=== PATIENT | male | born 1955 | race Two or more races ===

== ENCOUNTER 2021-03-19 08:02 | Emergency (ER) | payer SELFPAY ==
[~2021-03-19] VITALS: Ht 177.8 cm; Wt 95.3 kg
[2021-03-19] MEDS ORDERED: methylPREDNISolone SOD SUCC 125 MG/2 ML VL IV ONE (08:15)
[2021-03-19] MEDS ORDERED: ZINC SULFATE 220mg CAP or TAB PO ONE (08:30)
[2021-03-19] MEDS ORDERED: CHOLECALCIFEROL (VITD3) 2,000 UNIT CAP/TAB PO ONE (08:30)
[2021-03-19] MEDS ORDERED: ASCORBIC ACID 500 MG TAB PO ONE (08:30)
[2021-03-19 09:08] LABS: Basophils # (auto) 0.1 10 ^3/uL (0-0.2); Basophils % (auto) 1.1 % (0.0-2.0); Eosinophils # (auto) 0.1 10 ^3/uL (0-0.8); Eosinophils % (auto) 1.7 % (0.0-7.0); Hemoglobin 14.2 g/dL (13.5-17.5); Lymphocytes # (auto) 0.8 10 ^3/uL (0.4-5.4); Lymphocytes % (auto) 11.3 % (10.0-50.0); Mean Corpuscular Hgb Conc. 32.2 g/dL (32.0-36.0); Mean Corpuscular Volume 80.6 fL (80.0-100.0); Monocytes # (auto) 0.5 10 ^3/uL (0-1.3); Monocytes % (auto) 7.7 % (0.0-12.0); Neutrophils # (auto) 5.5 10 ^3/uL (1.6-8.6); Neutrophils % (auto) 78.2 % (37.0-80.0); Nucleated Red Blood Cells % 0.1 %; Red Blood Cells 5.46 10^6/uL (4.5-5.90)
[2021-03-19 09:38] LABS: Albumin 3.5 g/dL (3.4-5.0); Calcium 8.4 mg/dL (8.5-10.1); Magnesium 2.8 mg/dL (1.6-2.6); Potassium 4.2 mmol/L (3.5-5.1)
[2021-03-19 09:41] LABS: Lactic Acid w/Reflex 2.2 mmol/L (0.4-2.0)
[2021-03-19 09:47] LABS: BUN/Creatinine Ratio 18.8; Bilirubin, Total 0.7 mg/dL (0.2-1.0); CRP High Sensitivity 1.75 mg/dL (< 0.3); Total Protein 7.4 g/dL (6.4-8.2)
[2021-03-19 10:04] VITALS: BP 169/116
[2021-03-19] MEDS ORDERED: AZITHROMYCIN 500MG/ 250ML 250 ML IV ONE (10:30)
[2021-03-19] MEDS ORDERED: FUROSEMIDE 40 MG/4 ML VIAL IV ONE (10:30)
== END 2021-03-19 11:10 | disposition left against medical advice (07) ==
LOC: ER 08:02
DX: R06.02 Shortness of breath (principal); I50.9 Heart failure, unspecified; Z20.822 Contact with and (suspected) exposure to COVID-19
CPT/HCPCS: 36415; 71045; 80053; 82728; 83605; 83735; 83880; 84484; 85025; 85379; 86141; 87040; 87426; 93005; 96374; 99285; J0456; J1940; J2930

== ENCOUNTER 2021-04-06 02:16 | Inpatient (IN) | payer MEDICAID, OTHER ==
[~2021-04-06] VITALS: Ht 177.8 cm; Wt 90.7 kg
[2021-04-06] MEDS ORDERED: FUROSEMIDE 40 MG/4 ML VIAL IV ONE (02:30)
[2021-04-06] MEDS ORDERED: cloNIDine HCL 0.1 MG TAB PO ONE (02:30)
[2021-04-06 03:03] LABS: Basophils # (auto) 0.1 10 ^3/uL (0-0.2); Basophils % (auto) 0.9 % (0.0-2.0); Eosinophils # (auto) 0.2 10 ^3/uL (0-0.8); Eosinophils % (auto) 1.8 % (0.0-7.0); Hematocrit 44.9 % (41.0-53.0); Hemoglobin 14.3 g/dL (13.5-17.5); Lymphocytes # (auto) 0.8 10 ^3/uL (0.4-5.4); Lymphocytes % (auto) 9.7 % (10.0-50.0); Mean Corpuscular Hgb Conc. 31.9 g/dL (32.0-36.0); Mean Corpuscular Volume 81.8 fL (80.0-100.0); Monocytes # (auto) 0.5 10 ^3/uL (0-1.3); Monocytes % (auto) 5.8 % (0.0-12.0); Neutrophils # (auto) 6.9 10 ^3/uL (1.6-8.6); Neutrophils % (auto) 81.8 % (37.0-80.0); Nucleated Red Blood Cells % 0.1 %; Red Blood Cells 5.49 10^6/uL (4.5-5.90); Red Cell Distribution Width 16.5 % (11.8-14.3); White Blood Cell 8.4 10^3/uL (4.4-10.8)
[2021-04-06 03:20] LABS: Albumin 3.3 g/dL (3.4-5.0); Potassium 4.1 mmol/L (3.5-5.1)
[2021-04-06 03:23] LABS: Total Protein 6.9 g/dL (6.4-8.2)
[2021-04-06 06:51] LABS: Urine WBC None Seen /hpf (0 - 3)
[2021-04-06 07:00] LABS: Urine Bacteria NONE SEEN /hpf (None Seen); Urine Blood Negative /uL (Negative); Urine Hyaline Cast FEW /lpf (0 - 2); Urine Mucus FEW (None Seen); Urine Specific Gravity 1.005 (1.001-1.035)
[2021-04-06] MEDS ORDERED: ENOXAPARIN SOD 100 MG/1 ML SYRINGE SC ONE (07:15)
[2021-04-06] MEDS ORDERED: ACETAMINOPHEN 325 MG TAB PO ONE (10:15)
[2021-04-06] MEDS ORDERED: MORPHINE SULFATE INJECTION 2 MG/ML SYRG IV PRN ×2 (11:00)
[2021-04-06] MEDS ORDERED: HYDROcodone-ACET 5/325MG TAB PO PRN (11:00)
[2021-04-06] MEDS ORDERED: ONDANSETRON HCL 4 MG/2 ML VIAL IV PRN (11:00)
[2021-04-06] MEDS ORDERED: NITROGLYCERIN 0.4 MG SL TAB SL PRN (11:00)
[2021-04-06] MEDS ORDERED: ACETAMINOPHEN 500 MG TAB PO PRN (11:00)
[2021-04-06] MEDS ORDERED: hydrALAZINE HCL 20 MG/ML VL IV PRN (11:00)
[2021-04-06] MEDS ORDERED: FUROSEMIDE 20 MG/2 ML VIAL IV ONE (11:00)
[2021-04-06] MEDS: LISINOPRIL 5 MG TAB PO SCH (11:09)
[2021-04-06 11:39] LABS: Cholesterol 134 mg/dL (< 200)
[2021-04-06 11:41] LABS: HDL Cholesterol 19 mg/dL (40-59); LDL Cholesterol 105 mg/dL (< 100); Triglycerides 84 mg/dL (< 150)
[2021-04-06 11:56] LABS: Alcohol, Urine < 3.0 mg/dL (0-10); Amphetamine Screen, Urine NEGATIVE (NEGATIVE); Barbiturate Scree,Urine NEGATIVE (NEGATIVE); Benzodiazephine Screen, Urine NEGATIVE (NEGATIVE); Cannabinoid Screen, Urine NEGATIVE (NEGATIVE); Cocaine Screen, Urine NEGATIVE (NEGATIVE); Opiate Scree,Urine NEGATIVE (NEGATIVE); Phencyclidine Screen, Urine NEGATIVE (NEGATIVE)
[2021-04-06 23:30] VITALS: BP 130/90
[2021-04-07 05:00] VITALS: BP 124/94
[2021-04-07 07:24] LABS: Basophils # (auto) 0.1 10 ^3/uL (0-0.2); Eosinophils # (auto) 0.2 10 ^3/uL (0-0.8); Monocytes # (auto) 0.6 10 ^3/uL (0-1.3); Nucleated Red Blood Cells % 0.1 %; Red Blood Cells 5.15 10^6/uL (4.5-5.90)
[2021-04-07 07:26] LABS: Basophils % (auto) 0.9 % (0.0-2.0); Eosinophils % (auto) 3.4 % (0.0-7.0); Hematocrit 41.5 % (41.0-53.0); Hemoglobin 13.4 g/dL (13.5-17.5); Mean Corpuscular Hgb Conc. 32.3 g/dL (32.0-36.0); Mean Corpuscular Volume 80.5 fL (80.0-100.0); Monocytes % (auto) 10.4 % (0.0-12.0); Neutrophils # (auto) 4.1 10 ^3/uL (1.6-8.6); Neutrophils % (auto) 68.3 % (37.0-80.0); Red Cell Distribution Width 16.2 % (11.8-14.3)
[2021-04-07 07:45] LABS: Potassium 4.2 mmol/L (3.5-5.1)
[2021-04-07 07:53] LABS: BUN/Creatinine Ratio 16.5; Calcium 8.6 mg/dL (8.5-10.1)
[2021-04-07 07:56] LABS: INR 1.22 (0.9-1.15); Partial Thromboplastin Time 28.8 sec (23.6-33.0)
[2021-04-07] MEDS ORDERED: METOPROLOL SUCCINATE XL 50 MG TAB PO SCH (10:00)
[2021-04-07] MEDS: ASPirin-EC 81 mg tab PO SCH (10:00)
[2021-04-07] MEDS ORDERED: FUROSEMIDE 20 MG TAB PO SCH (10:00)
[2021-04-07] MEDS: LISINOPRIL 5 MG TAB PO SCH (10:00)
[2021-04-07] MEDS ORDERED: LISINOPRIL 5 MG TAB PO ONE (11:15)
[2021-04-07] MEDS ORDERED: POTASSIUM CHL 20 Meq TABLET PO ONE (11:15)
[2021-04-07] MEDS ORDERED: FUROSEMIDE 40 MG/4 ML VIAL IV ONE (11:15)
[2021-04-07] MEDS: CARVEDILOL 12.5 MG TAB PO SCH (21:42)
[2021-04-08 06:47] LABS: Potassium 4.4 mmol/L (3.5-5.1)
[2021-04-08 06:56] LABS: BUN/Creatinine Ratio 19.1; Calcium 8.8 mg/dL (8.5-10.1)
[2021-04-08] MEDS ORDERED: ADENOSINE 76 MG in GIVE UN-DILUTED 0 ML IV STA (07:09)
[2021-04-08 08:12] VITALS: BP 113/99
[2021-04-08 09:00] VITALS: BP 120/72
[2021-04-08] MEDS: ASPirin-EC 81 mg tab PO SCH (09:11)
[2021-04-08] MEDS: CARVEDILOL 12.5 MG TAB PO SCH (09:13)
[2021-04-08] MEDS ORDERED: POTASSIUM CHL 20 Meq TABLET PO SCH (10:00)
[2021-04-08] MEDS ORDERED: LISINOPRIL 5 MG TAB PO SCH (10:00)
[2021-04-08] MEDS ORDERED: FUROSEMIDE 40 MG/4 ML VIAL IV SCH (10:00)
[2021-04-08 12:49] VITALS: BP 106/78
== END 2021-04-08 14:15 | disposition left against medical advice (07) | DRG 194 ==
LOC: ER 02:16 → TELE 10:46 → TELE-CENTR 23:23
PROVIDERS: ADMIT Nurse Practitioner Acute Care; ATTEND Internal Medicine
DX: I11.0 Hypertensive heart disease with heart failure (principal); J96.01 Acute respiratory failure with hypoxia; I21.A1 Myocardial infarction type 2; E44.1 Mild protein-calorie malnutrition; R77.8 Other specified abnormalities of plasma proteins; I50.21 Acute systolic (congestive) heart failure; F14.10 Cocaine abuse, uncomplicated; I27.20 Pulmonary hypertension, unspecified; E78.5 Hyperlipidemia, unspecified; Z20.822 Contact with and (suspected) exposure to COVID-19; Z53.29 Procedure and treatment not carried out because of patient's decision for other reasons; R73.9 Hyperglycemia, unspecified; Z68.26 Body mass index [BMI] 26.0-26.9, adult; Z82.49 Family history of ischemic heart disease and other diseases of the circulatory system; Z83.3 Family history of diabetes mellitus
CPT/HCPCS: 36415; 71045; 78452; 80048; 80053; 80061; 80307; 81001; 83036; 83880; 84484; 85025; 85610; 85730; 87426; 93005; 93017; 93306; 96372; 96374; 96376; 99291; G0378; J0153

== ENCOUNTER 2021-04-14 13:31 | Emergency (ER) | payer SELFPAY ==
[~2021-04-14] VITALS: Ht 177.8 cm; Wt 90.7 kg
[2021-04-14 13:35] VITALS: BP 170/128
[2021-04-14 15:00] LABS: Basophils # (auto) 0.1 10 ^3/uL (0-0.2); Eosinophils # (auto) 0.2 10 ^3/uL (0-0.8); Hemoglobin 13.6 g/dL (13.5-17.5); Mean Corpuscular Hemoglobin 25.5 pg (28.0-32.0); Monocytes # (auto) 0.7 10 ^3/uL (0-1.3); Nucleated Red Blood Cells % 0.1 %
[2021-04-14 15:01] LABS: Basophils % (auto) 1.8 % (0.0-2.0); Eosinophils % (auto) 2.3 % (0.0-7.0); Hematocrit 42.4 % (41.0-53.0); Lymphocytes # (auto) 0.9 10 ^3/uL (0.4-5.4); Lymphocytes % (auto) 12.9 % (10.0-50.0); Mean Corpuscular Hgb Conc. 32.1 g/dL (32.0-36.0); Mean Corpuscular Volume 79.4 fL (80.0-100.0); Monocytes % (auto) 9.8 % (0.0-12.0); Neutrophils % (auto) 73.2 % (37.0-80.0); Red Blood Cells 5.34 10^6/uL (4.5-5.90); Red Cell Distribution Width 16.1 % (11.8-14.3); White Blood Cell 6.9 10^3/uL (4.4-10.8)
[2021-04-14 15:08] LABS: Albumin 3.5 g/dL (3.4-5.0); Calcium 8.7 mg/dL (8.5-10.1); Potassium 4.6 mmol/L (3.5-5.1)
[2021-04-14 15:14] LABS: BUN/Creatinine Ratio 22.9; Bilirubin, Total 1.1 mg/dL (0.2-1.0); Total Protein 6.8 g/dL (6.4-8.2)
[2021-04-14] MEDS ORDERED: ASPirin 81 mg TAB PO ONE (17:30)
[2021-04-14] MEDS ORDERED: FUROSEMIDE 20 MG/2 ML VIAL IV ONE (17:30)
== END 2021-04-14 23:50 | disposition left against medical advice (07) ==
LOC: ER 13:31
DX: I24.9 Acute ischemic heart disease, unspecified (principal); I50.9 Heart failure, unspecified; Z90.89 Acquired absence of other organs
CPT/HCPCS: 36415; 71045; 80053; 83880; 84484; 85025

== ENCOUNTER 2021-04-15 03:18 | Inpatient (IN) | payer BC, OTHER ==
[~2021-04-15] VITALS: Ht 177.8 cm; Wt 89.0 kg
[2021-04-15] MEDS ORDERED: ASPirin 81 mg TAB PO ONE (08:15)
[2021-04-15 10:33] LABS: Basophils # (auto) 0.1 10 ^3/uL (0-0.2); Basophils % (auto) 0.9 % (0.0-2.0); Eosinophils # (auto) 0.1 10 ^3/uL (0-0.8); Eosinophils % (auto) 1.2 % (0.0-7.0); Hematocrit 43.3 % (41.0-53.0); Hemoglobin 14.1 g/dL (13.5-17.5); Lymphocytes % (auto) 11.2 % (10.0-50.0); Mean Corpuscular Hemoglobin 25.9 pg (28.0-32.0); Mean Corpuscular Hgb Conc. 32.5 g/dL (32.0-36.0); Mean Corpuscular Volume 79.6 fL (80.0-100.0); Monocytes # (auto) 0.6 10 ^3/uL (0-1.3); Monocytes % (auto) 7.5 % (0.0-12.0); Neutrophils # (auto) 6.7 10 ^3/uL (1.6-8.6); Neutrophils % (auto) 79.2 % (37.0-80.0); Nucleated Red Blood Cells % 0.2 %; Red Blood Cells 5.44 10^6/uL (4.5-5.90); White Blood Cell 8.5 10^3/uL (4.4-10.8)
[2021-04-15 10:47] LABS: Albumin 3.6 g/dL (3.4-5.0); Calcium 9.1 mg/dL (8.5-10.1)
[2021-04-15 10:51] LABS: Bilirubin, Total 1.4 mg/dL (0.2-1.0); Total Protein 6.9 g/dL (6.4-8.2)
[2021-04-15] MEDS ORDERED: NITROGLYCERIN 0.4 MG SL TAB SL PRN (11:45)
[2021-04-15] MEDS ORDERED: MORPHINE SULFATE INJECTION 2 MG/ML SYRG IV PRN (11:45)
[2021-04-15] MEDS ORDERED: ENOXAPARIN SOD 100 MG/1 ML SYRINGE SC ONE (11:45)
[2021-04-15] MEDS ORDERED: FUROSEMIDE 20 MG/2 ML VIAL IV ONE (12:00)
[2021-04-15] MEDS: SODIUM CHLOR 0.9% PF (SALINE LOCK) 10ML VIAL/SYR IV SCH ×2 (14:18→21:43)
[2021-04-15 20:07] LABS: Alcohol, Urine < 3.0 mg/dL (0-10); Amphetamine Screen, Urine NEGATIVE (NEGATIVE); Barbiturate Scree,Urine NEGATIVE (NEGATIVE); Benzodiazephine Screen, Urine NEGATIVE (NEGATIVE); Cannabinoid Screen, Urine NEGATIVE (NEGATIVE); Cocaine Screen, Urine NEGATIVE (NEGATIVE); Opiate Scree,Urine NEGATIVE (NEGATIVE); Phencyclidine Screen, Urine NEGATIVE (NEGATIVE)
[2021-04-15] MEDS: CARVEDILOL 3.125 MG TAB PO SCH (21:43)
[2021-04-15] MEDS: SACUBITRIL-VALSARTAN 24mg/26mg TAB PO SCH (21:44)
[2021-04-15] MEDS: ATORVASTATIN 20 MG TAB PO SCH (21:44)
[2021-04-15] MEDS: ENOXAPARIN SOD 100 MG/1 ML SYRINGE SC SCH (21:44)
[2021-04-15 22:16] VITALS: BP 155/102
[2021-04-16 01:23] LABS: Urine Bacteria NONE SEEN /hpf (None Seen); Urine Blood Negative /uL (Negative); Urine Specific Gravity 1.014 (1.001-1.035); Urine WBC None Seen /hpf (0 - 3)
[2021-04-16] MEDS: SODIUM CHLOR 0.9% PF (SALINE LOCK) 10ML VIAL/SYR IV SCH ×3 (04:51→21:48)
[2021-04-16] MEDS: FUROSEMIDE 20 MG/2 ML VIAL IV SCH ×2 (04:52→18:09)
[2021-04-16 09:00] VITALS: BP 141/85
[2021-04-16 09:05] LABS: Basophils # (auto) 0.1 10 ^3/uL (0-0.2); Eosinophils # (auto) 0.5 10 ^3/uL (0-0.8); Hematocrit 42.9 % (41.0-53.0); Monocytes # (auto) 0.9 10 ^3/uL (0-1.3); Monocytes % (auto) 8.7 % (0.0-12.0); Neutrophils # (auto) 8.2 10 ^3/uL (1.6-8.6)
[2021-04-16 09:08] LABS: Basophils % (auto) 0.9 % (0.0-2.0); Eosinophils % (auto) 4.2 % (0.0-7.0); Hemoglobin 13.9 g/dL (13.5-17.5); Lymphocytes % (auto) 9.7 % (10.0-50.0); Mean Corpuscular Hemoglobin 25.9 pg (28.0-32.0); Mean Corpuscular Hgb Conc. 32.5 g/dL (32.0-36.0); Mean Corpuscular Volume 79.9 fL (80.0-100.0); Neutrophils % (auto) 76.5 % (37.0-80.0); Nucleated Red Blood Cells % 0.2 %; Red Blood Cells 5.37 10^6/uL (4.5-5.90); White Blood Cell 10.7 10^3/uL (4.4-10.8)
[2021-04-16 09:29] LABS: Potassium 3.9 mmol/L (3.5-5.1)
[2021-04-16 09:37] LABS: Albumin 3.1 g/dL (3.4-5.0); BUN/Creatinine Ratio 18.6; Calcium 8.7 mg/dL (8.5-10.1); Total Protein 6.4 g/dL (6.4-8.2)
[2021-04-16 09:51] LABS: Bilirubin, Total 1.3 mg/dL (0.2-1.0)
[2021-04-16] MEDS: SACUBITRIL-VALSARTAN 24mg/26mg TAB PO SCH ×2 (10:45→21:48)
[2021-04-16] MEDS: CARVEDILOL 3.125 MG TAB PO SCH ×2 (10:45→21:49)
[2021-04-16] MEDS: DAPAGLIFLOZIN 5 MG TAB PO SCH (10:46)
[2021-04-16] MEDS: ENOXAPARIN SOD 100 MG/1 ML SYRINGE SC SCH ×2 (10:47→21:50)
[2021-04-16] MEDS: ASPirin-EC 81 mg tab PO SCH (10:47)
[2021-04-16 12:48] VITALS: BP 127/78
[2021-04-16 17:00] VITALS: BP 133/70
[2021-04-16 21:30] VITALS: BP 112/76
[2021-04-16] MEDS: ATORVASTATIN 20 MG TAB PO SCH (21:48)
[2021-04-17] MEDS ORDERED: HYDROcodone-ACET 5/325MG TAB PO PRN (01:30)
[2021-04-17] MEDS: HYDROcodone-ACET 5/325MG TAB PO PRN (01:49)
[2021-04-17] MEDS ORDERED: HYDROcodone-ACET 5/325MG TAB ONE (01:49)
[2021-04-17 05:00] VITALS: BP 129/85
[2021-04-17] MEDS: SODIUM CHLOR 0.9% PF (SALINE LOCK) 10ML VIAL/SYR IV SCH ×3 (06:12→21:36)
[2021-04-17] MEDS: FUROSEMIDE 20 MG/2 ML VIAL IV SCH ×2 (06:14→17:56)
[2021-04-17 08:00] VITALS: BP 124/71
[2021-04-17 09:00] VITALS: BP 124/71
[2021-04-17] MEDS: ASPirin-EC 81 mg tab PO SCH (09:18)
[2021-04-17] MEDS: CARVEDILOL 3.125 MG TAB PO SCH ×2 (09:19→21:42)
[2021-04-17] MEDS: SACUBITRIL-VALSARTAN 24mg/26mg TAB PO SCH ×2 (09:19→21:36)
[2021-04-17] MEDS: DAPAGLIFLOZIN 5 MG TAB PO SCH (09:19)
[2021-04-17] MEDS ORDERED: ENOXAPARIN SOD 40 MG/0.4 ML SYRINGE SC SCH (10:00)
[2021-04-17] MEDS ORDERED: AMIODARONE HCL 200 MG TAB PO ONE (12:30)
[2021-04-17 13:00] VITALS: BP 105/78
[2021-04-17 17:00] VITALS: BP 125/80
[2021-04-17] MEDS: APIXABAN 5 MG TAB PO SCH (21:35)
[2021-04-17] MEDS: AMIODARONE HCL 200 MG TAB PO SCH (21:35)
[2021-04-17] MEDS: ATORVASTATIN 20 MG TAB PO SCH (21:35)
[2021-04-17 22:00] VITALS: BP 120/80
[2021-04-18 05:00] VITALS: BP 109/83
[2021-04-18] MEDS: SODIUM CHLOR 0.9% PF (SALINE LOCK) 10ML VIAL/SYR IV SCH ×2 (06:26→14:58)
[2021-04-18] MEDS: FUROSEMIDE 20 MG/2 ML VIAL IV SCH (06:26)
[2021-04-18] MEDS: HYDROcodone-ACET 5/325MG TAB PO PRN (08:24)
[2021-04-18] MEDS: CARVEDILOL 3.125 MG TAB PO SCH (08:24)
[2021-04-18] MEDS: AMIODARONE HCL 200 MG TAB PO SCH (08:25)
[2021-04-18] MEDS: APIXABAN 5 MG TAB PO SCH (08:25)
[2021-04-18] MEDS: SACUBITRIL-VALSARTAN 24mg/26mg TAB PO SCH (08:25)
[2021-04-18] MEDS: DAPAGLIFLOZIN 5 MG TAB PO SCH (08:25)
[2021-04-18] MEDS: ASPirin-EC 81 mg tab PO SCH (08:25)
[2021-04-18 09:00] VITALS: BP 117/83
[2021-04-18 13:00] VITALS: BP 99/69
[2021-04-18] MEDS ORDERED: AMIO200T33 PO (14:28)
[2021-04-18] MEDS ORDERED: APIX5TAB PO (14:28)
[2021-04-18] MEDS ORDERED: SACU1TAB PO (14:28)
[2021-04-18] MEDS ORDERED: DAPA1TAB4 PO (14:28)
[2021-04-18] MEDS ORDERED: FURO40TA4 PO (14:28)
[2021-04-18] MEDS ORDERED: CARV6.25 PO (14:28)
[2021-04-18] MEDS ORDERED: ASPI-543 PO (14:28)
== END 2021-04-18 17:00 | disposition home or self-care (01) | DRG 280 ==
LOC: ER 03:21 → TELE 11:50 → TELE-CENTR 18:21
PROVIDERS: ADMIT Internal Medicine; ATTEND Internal Medicine
DX: I11.0 Hypertensive heart disease with heart failure (principal); I50.43 Acute on chronic combined systolic (congestive) and diastolic (congestive) heart failure; I21.A1 Myocardial infarction type 2; I42.0 Dilated cardiomyopathy; E66.9 Obesity, unspecified; E78.5 Hyperlipidemia, unspecified; I27.20 Pulmonary hypertension, unspecified; Z20.822 Contact with and (suspected) exposure to COVID-19; I48.0 Paroxysmal atrial fibrillation; Z83.3 Family history of diabetes mellitus; Z91.19 Patient's noncompliance with other medical treatment and regimen; Z68.28 Body mass index [BMI] 28.0-28.9, adult
CPT/HCPCS: 36415; 71045; 80053; 80307; 81001; 83880; 84443; 84484; 85025; 85379; 87426; 93005; 93970; 96372; 96374; G0378